=== PATIENT | male | born 1980 | race Two or more races ===

== ENCOUNTER 2017-11-30 00:26 | Emergency (ER) | payer OTHER ==
[~2017-11-30] VITALS: Ht 182.9 cm; Wt 111.1 kg
[2017-11-30 00:29] VITALS: BP 136/80
[2017-11-30] MEDS ORDERED: ALBUTEROL FS 2.5 MG/0.5 ML VIAL.NEB NEB ONE (01:00)
[2017-11-30] MEDS ORDERED: ALBUTEROL FS 2.5 MG/0.5 ML VIAL.NEB ONE (01:07)
== END 2017-11-30 02:27 | disposition home or self-care (01) ==
LOC: ER 00:41
DX: J98.01 Acute bronchospasm (principal)
CPT/HCPCS: 71045; 94640; 99283; A4606; Z7610

== ENCOUNTER 2021-12-05 14:15 | Emergency (ER) | payer OTHER ==
[~2021-12-05] VITALS: Ht 180.3 cm; Wt 111.1 kg
--- NOTE | 2021-12-05 14:15 | NUR ---
X-RAY TECH AT BED SIDE
[2021-12-05 14:17] VITALS: BP 165/110
--- NOTE | 2021-12-05 14:20 | NUR ---
BIBS C/O SOB X 2 DAYS. AMBULATORY, AAOX4, TACHYPNEIC RR-28 SATURATING AT 93%RA. PLACED ON BED ATTACHED TO MONITOR.
--- NOTE | 2021-12-05 14:20 | NUR ---
AT BED SIDE
--- NOTE | 2021-12-05 14:40 | NUR ---
SWAB FOR COVID 19 AND NOVEL CORONAVIRUS BARRETT SENT TO LAB
--- NOTE | 2021-12-05 14:45 | NUR ---
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
[2021-12-05] MEDS ORDERED: predniSONE 20 MG TABLET ONE (14:47)
[2021-12-05] MEDS ORDERED: IPRATROPIUM NEB FS 0.5 MG/2.5 ML AMPUL.NEB NEB ONE (15:00)
[2021-12-05] MEDS ORDERED: predniSONE 20 MG TABLET PO ONE (15:00)
[2021-12-05] MEDS ORDERED: ALBUTEROL FS 2.5 MG/3 ML VIAL.NEB NEB ONE (15:00)
--- NOTE | 2021-12-05 15:47 | NUR ---
REFUSED INSERTION OF IV PERIPHERAL LINE. MADE AWARE
[2021-12-05] MEDS ORDERED: ALBUTEROL FS 2.5 MG/3 ML VIAL.NEB ONE ×2 (16:46→16:49)
[2021-12-05] MEDS ORDERED: IPRATROPIUM NEB FS 0.5 MG/2.5 ML AMPUL.NEB ONE (16:46)
[2021-12-05] MEDS ORDERED: ALBU8.5H8 INH (19:57)
[2021-12-05] MEDS ORDERED: DOXY100C2 PO (19:57)
[2021-12-05] MEDS ORDERED: PRED20TA PO (19:57)
[2021-12-05] MEDS ORDERED: DOXYCYCLINE HYCLATE (100 MG) 100 MG TABLET PO ONE (20:00)
[2021-12-05] MEDS ORDERED: DOXYCYCLINE HYCLATE (100 MG) 100 MG TABLET ONE (20:02)
--- NOTE | 2021-12-05 20:18 | NUR ---
Patient does not wish to proceed with medical care recommended by Dr. Fragoso. Patient given information related to possible complications, up to and including , which could occur as a result of leaving the hospital at this time. Patient verbalizes understanding of risks involved due to leaving against medical advice. Patient has signed AMA form.
== END 2021-12-05 22:49 | disposition left against medical advice (07) ==
LOC: ER 14:28
DX: J98.01 Acute bronchospasm (principal); R94.2 Abnormal results of pulmonary function studies; Z20.822 Contact with and (suspected) exposure to COVID-19; Z53.29 Procedure and treatment not carried out because of patient's decision for other reasons; R94.31 Abnormal electrocardiogram [ECG] [EKG]; R91.8 Other nonspecific abnormal finding of lung field
CPT/HCPCS: 71045; 71250; 87426; 93005; 94640; 94799; 99291; C9803 ×2; J7512; U0003